=== PATIENT | male | born 2005 | race Caucasian/White ===

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

== ENCOUNTER 2025-04-24 20:15 | Emergency (ER) | payer BC, SELFPAY ==
--- NOTE | ~2025-04-24 | CT_ITS ---
CT abdomen pelvis w con Ordering provider: Teresa Grimes PA-C History: 20 years Male with . upper abd pain n/v/gerd . Comparison: None. Technique: CT abdomen and pelvis with IV and without oral contrast. Automated exposure control and it erative reconstruction technique were employed. The dose-length product was 208.90 mGy-cm. 100 mL Omn ipaque 350 was given IV. Findings: VISUALIZED LOWER CHEST: Normal. UPPER ABDOMINAL ORGANS: Liver: Normal. Gallbladder: Contracted. Spleen: Normal. Stomach/duodenum: Normal. Pancreas: Slightly prominent body and tail. Evaluation for pancreatitis advised. Adrenals: Normal. Kidneys: Hypodensity in the right kidney midpole which may indicate focal pyelonephritis. PELVIC ORGANS: The bladder shows thickened wall which may indicate cystitis. Further evaluation advis ed. BOWEL AND MESENTERY: Colon: Mild sigmoid diverticulosis without evidence of diverticulitis.. Appendix is not demonstrated. Small Bowel: Normal. No obstruction. Peritoneum/mesentery: No free air or free fluid. No mesenteric lymphadenopathy. RETROPERITONEUM: Normal aorta. No retroperitoneal lymphadenopathy. MUSCULOSKELETAL: Superficial soft tissues: The superficial soft tissues are normal. Bones: Dextroscoliosis. Otherwise, Normal spine. Artifacts seen in the pubic symphysis and the possib ility of fracture in the left 1 is less likely. IMPRESSION: 1. No evidence of appendicitis, diverticulitis or intestinal obstruction. 2. Slightly enlarged size of the body and tail of the pancreas which may indicate pancreatitis. Clin ical correlation and further evaluation advised. 3. Hypodensity in the right kidney midpole suggestive of pyelonephritis. 4. Slightly thickened wall of the urinary bladder which may indicate cystitis. Further evaluation ad vised. Reviewed, dictated and finalized at location A. IMPRESSION: 1. No evidence of appendicitis, diverticulitis or intestinal obstruction. 2. Slightly enlarged size of the body and tail of the pancreas which may indic ate pancreatitis. Clinical correlation and further evaluation advised. 3. Hypodensity in the right kidney midpole suggestive of pyelonephritis. 4. Slightly thickened wall of the urinary bladder which may indicate cystitis. Further evaluation advised.
[2025-04-24 20:17] VITALS: BP 130/82; PULSE 103; RESP 17; TEMP 37.1; O2SAT 98
--- OUTSIDE RECORDS SUMMARY | 2025-04-24 20:18 | XMS_ITS | Continuity of Care Document ---
Author Organization [facility] Address [address] [place] [address] Phone Care Team Providers Care Field Cane Scale Clerk Name Role Phone Valentin Hammonds MD Unavailable Unavailable Allergies, Adverse Reactions, Alerts Substance Reaction Status Criticality No Known Allergies Active No Inform ation Medications Medication Instructions Dosage Effective Dates (start - stop) Status Comments No Drug Therapy Prescribed Advance Directives Directive Yes / No Effective Date File Name No Information Encounters Encounter Description Practice Location Reason(s) For Visit Diagnoses Date Provider Providers [facility] on [facility] [address] [place], [place], [id number], [place] tel:[phone] [facility] Short staturePubertal delay Jul- [address], [address] [place] [address], [id number] , [place]. tel:[phone] Referring Provider: [address], [place], [address] . tel:[phone] Family History Family Member Type Diagnosis Age At Onset No Information Payers Payer name Insurance type Covered green party ID Authoriza arline(s) [facility] [id number] Social History Type Description Quantity Date Captured Comments Alcohol Use Details Unknown Caffeine Use Details Unknown Tobacco Use Status No Information Smoking Status No Information Sex Male Vital Signs Date / Time: Height Weight BMI Pulse Rate Blood Pressure Temperature Respiratory Rate Body Surface Area Head Circumference Head Circ. Percentile Wt./Reuben. Percentile BMI percentile Pulse Ox Inhaled Ox 10:18 AM 52.60 in 23.587 kg (52.00 lbs) 13.2 1 kg/m eter (2) 112/56 mm[Hg] 98.70 F Chief Complaint And Reason For Visit No Information Reason For Referral Reason For Referral No Information History Of Present Illness Encounter Date Complaint History Of Prese nt Illness No Information Functional Status Date Functional Assessmen t No Information Medications Administered Medication Instructions Dosage Effective Dates (start - stop) Status Comments No Drug Therapy Prescribed Instructions Date Instruction Additional Infor mation No Information Assessments Type Assessment Date No Information Patient Care Teams Name Effective Dates (start - stop) Status Members No Information
--- OUTSIDE RECORDS SUMMARY | 2025-04-24 20:18 | XMS_ITS | Clinical Summary ---
Author Organization [facility] Address [address] [place] [address] Care Team Providers Care Head Of Maintenance Name Role Phone Unavailable Primary Care Provider Unavailabl e Source Comments [facility],non-owned Affiliates and Associated Physician Practices is amultiple site organization consisting of ambulatory clinics and hospital sitesin [place], [place], [place] and [place]. This disclosure is being madepursuant to the Care Everywhere program and may not contain all information available regarding this patient. Last updated 18.[facility] Allergies No known active allergies Medications * Be aware that medications may not be up to date on this document. Alwaysverify current medications with the patient. cetirizine (ZYRTEC) 10 MG chew tablet Take 10 mg by mouth once daily Active Active Problems Problem Noted Date Diagnosed Date Fracture, radius and ulna, shaft 03/25/2017 Social History Tobacco Use Types Packs/Day Years Used Date Smoking Tobacco: Never Smokeless Tobacco: Never Alcohol Use Standard Drinks/Week Comments No 0 (1 standard drink = 0.6 oz pur e alcohol) Sex and Gender Information Value Date Recorded Sex Assigned at Not on file Legal Sex Male 9:06 AM CDT Gender Identity Not on file Sexual Orientation Not on file Last Filed Vital Signs Vital Sign Reading Time Taken Comments Blood Pressure 108/56 03/29/2017 10:50 AM CDT Pulse 76 03/29/2017 11:07 AM CDT Temperature 36.3 C (97.3 F) 03/29/2017 9:00 AM CDT Respiratory Rate 10 03/29/2017 11:07 AM CDT Oxygen Saturation 94% 03/29/2017 11:07 AM CDT Inhaled Oxygen Concentration - - Weight 32.5 kg (71 lb 10.4 oz) 05/20/2017 10:23 AM CDT Height 149.5 cm (4' 10.86) 05/20/2017 10:23 AM CDT Body Mass Index 14.54 05/20/2017 10:23 AM CDT Plan of Treatment Health Maintenance Due Date Last Done Comments HIV SCREENING 2018 HPV VACCINE (1 - Male 3-dose series) 2018 MENINGOCOCCAL (Group B) VACC INE SHARED DECISION-MAKING (1 of 2 - Standard) 2019 HEPATITIS C SCREENING 03/15/2021 DTAP/TDAP/TD VACCINES (1 - Tdap) 2022 HEPATITIS B VACCINE (1 of 3 - 19+ 3-dose series) 2022 COVID-19 VACCINE (1 - 2023-2 5 season) 2024 DEPRESSION SCREENING 11/22/2024 INFLUENZA VACCINE (Season Ended) 2025 ZOSTER VACCINE (1 of 2) 2053 HIB VACCINE Aged Out No longer eligi ble based on patient's age to complete this topic MENINGOCOCCAL GROUPS A/C/Y/W VACCINE Aged Out No longer eligible b ased on patient's age to complete this topic PNEUMOCOCCAL VACCINE Aged Out No long er eligible based on patient's age to complete this topic Insurance [facility]
--- OUTSIDE RECORDS SUMMARY | 2025-04-24 20:18 | XMS_ITS | Encounter Summary ---
Author Organization [facility] Address [address] [place] [address] Care Team Providers Care Spring Bender Name Role Phone Unavailable Primary Care Provider Unavailabl e Encounter Details Date Type Department Care Team (Late st Contact Info) Description [address] 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
--- OUTSIDE RECORDS SUMMARY | 2025-04-24 20:18 | XMS_ITS | Encounter Summary ---
Author Organization [facility] Address [address] Attn: [place] [address] Care Team Providers Care Tobacco Dipper Name Role Phone Unavailable Primary Care Provider Unavailabl e Encounter Details Date Type Department Care Team (Late st Contact Info) Description 2003 Inpatient Historical Robert Johnson MD [address] [place] [phone] Luna Colunga MD [address] [place] [address] [facility]-NO C/DELIVERY (Primary Dx) Social History Tobacco Use Types Packs/Day Years Used Date Smoking Tobacco: Never Assessed Sex and Gender Information Value Date Recorded Sex Assigned at Not on file 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
--- OUTSIDE RECORDS SUMMARY | 2025-04-24 20:18 | XMS_ITS | Encounter Summary ---
Author Organization [facility] Address [address] [place] [address] Care Team Providers Care Operations Intelligence Superintendent Name Role Phone Unavailable Primary Care Provider Unavailabl e Encounter Details Date Type Department Care Team (Late st Contact Info) Description 2003 Outpatient Historical [facility] TRANSFER CAR OPERATOR - [address] [place] [address] Elliot Waller MD [address] [address] Social History Tobacco Use Types Packs/Day Years Used Date Smoking Tobacco: Never Assessed Sex and Gender Information Value Date Recorded Sex Assigned at Not on file 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
--- OUTSIDE RECORDS SUMMARY | 2025-04-24 20:18 | XMS_ITS | Referral Summary ---
Author Organization [facility] Address [address] [place] [address] Care Team Providers Care Musical Therapist Name Role Phone Ghada Newton NP Primary Care Provider [phone] Encounters Date Type Department Care Team Description 04/23/2025 Nurse Triage [facility] Primary Care at [address] [address] Ghada Newton, STUFFING MACHINE OPERATOR from Last 3 Months Allergies No known active allergies Medications cetirizine (ZyrTEC) 10 mg chewable tablet Take 1 tablet (10 mg total) by mouth Active escitalopram (LEXAPRO) 10 mg tablet Take 1 tablet (10 mg total) by mouth daily 30 tablet 1 12/15/2023 Active Active Problems Problem Noted Date Diagnosed Date Anxiety 12/15/2023 Assessment & Plan (12/15/2023 12:58 PM WATER PLUMBER): + Thomas-7. Discussed starting a medication and pt is agreeable. Will start lexapro . Discussed starting dose and titration to full dose, possible SE and time frame for expected results. Call if any suicidal thoughts or questions concerning SE. Do not abruptly stop medication without calling office. Follow up in 3-4 weeks for recheck and continuation of medications. Annual physical exam 12/15/2023 Assessment & Plan (12/15/2023 12:59 PM WATER PLUMBER): -Recommended: Healthy diet. Avoiding junk food/fast food. -30 minutes of exercise most days of the week. Increase to 45 minutes for weight loss. Immunizations: Recommended influenza routine labs ordered Follow-up in 1 month. 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 Resolved Problems Problem Noted Date Diagnosed Date Resolved Date Fracture, radius and ulna, shaft 03/25/2017 12/15/2023 Immunizations Immunization Administration Dates Next Due DTaP 09/03/2008, 5,2003,2003 ,2003 HPV9 07/08/2020 Hep A, Pediatric 07/06/2017,08/07/2014 Hep B, Adolescent or Pediatric 01/17/2004,2002,2003 Hib (PRP-OMP) 03/30/2005,2003,2003 ,2003 IPV 09/03/2008,03/30/2005,2003 ,2003 Influenza, Unspecified 12/15/2023(Deferr ed: Patient Refused),11/22/2022(Deferred: Patient Refused) MMR 09/03/2008,07/07/2004 Meningococcal B, OMV (Bexsero) 08/08/2020,2019 Meningococcal Conjugate (Menveo) 07/08/2020 Meningococcal MCV4P (Menactra) 08/07/2014 Pneumococcal Conjugate 7-Valent 03/30/2005,10/10,2003,2003 Tdap 01/07/2022,08/07/2014 Varicella 09/03/2008,04/04/2004 Social History Tobacco Use Types Packs/Day Years Used Date Smoking Tobacco: Never Smokeless Tobacco: Never Tobacco Cessation:Counseling Given: Not Answered PHQ-2 Answer Date Recorded PHQ-2 Total Score (If total score is 3 or more points, staff should administer the PHQ-9) 0 12/15/2023 Personal Safety Answer Date Recorded Getting School Help Needed Not on file 11/09 Sex and Gender Information Value Date Recorded Sex Assigned at Not on file Legal Sex Male 5:22 AM WATER PLUMBER Gender Identity Not on file Sexual Orientation Not on file Last Filed Vital Signs Vital Sign Reading Time Taken Comments Blood Pressure 112/70 12/15/2023 12:16 PM WATER PLUMBER Pulse 81 12/15/2023 12:16 PM WATER PLUMBER Temperature 36.8 C (98.2 F) 12/15/2023 12:16 PM WATER PLUMBER Respiratory Rate 18 10/05/2018 9:21 AM WATER PLUMBER Oxygen Saturation 98% 12/15/2023 12:16 PM WATER PLUMBER Inhaled Oxygen Concentration - - Weight 54.5 kg (120 lb 3.2 oz) 12/15/2023 12:16 PM WATER PLUMBER Height 172.7 cm (5' 8) 12/15/2023 12:16 PM WATER PLUMBER Body Mass Index 18.28 12/15/2023 12:16 PM WATER PLUMBER Plan of Treatment Not on file Insurance [facility] [employer] [facility] Address: [address] [address] [place] [address] [employer] [facility] Address: [address] [address] [place] [address] [facility] Care Teams Musical Therapist Relationship Specialty Start Date End Date Ghada Newton NP PCP - General Family Medicine 12/15/23
--- OUTSIDE RECORDS SUMMARY | 2025-04-24 20:18 | XMS_ITS | Encounter Summary ---
Author Organization [facility] Address 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
--- OUTSIDE RECORDS SUMMARY | 2025-04-24 20:18 | XMS_ITS | Encounter Summary ---
Author Organization [facility] Address [address] [place] [address] Care Team Providers Care Manager Bar Name Role Phone Unavailable Primary Care Provider Unavailabl e Encounter Details Date Type Department Care Team (Late st Contact Info) Description 2003 Outpatient Historical [facility] Pediatrics - Medical [place] [address] [address] Denzel Church MD [address] [place] [address] Social History Tobacco Use Types Packs/Day Years Used Date Smoking Tobacco: Never Assessed Sex and Gender Information Value Date Recorded Sex Assigned at Not on file Legal 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
--- OUTSIDE RECORDS SUMMARY | 2025-04-24 20:18 | XMS_ITS | Encounter Summary ---
Author Organization [facility] Address [address] [place] [address] Care Team Providers Care Court Operations Clerk Name Role Phone Ghada Newton NP Primary Care Provider [phone] Reason for Visit * Reason Onset Date Comments GERD 04/23/2025 Encounter Details Date Type Department Care Team (Late st Contact Info) Description 04/23/[address] 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 He has taken OTC antacids, TUMS. Caller is currently with patient who gave verbal permission for me to speak with his mother, Natalie. 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 He states his acid reflux has been acting up and having nausea off/on. States he vomited two weeks ago. States he feels more nauseated today than normal. No appt available to milieu technician. Please contact patient to schedule appt or with further recommendations. ([phone]) Care Advice Given: Avoid spicy or greasy foods, do not eat late at night, sit up for 30 minutes after eating, Maalox or Mylanta, drink plenty of water, no caffeine Educated patient to call back if worsens, new symptoms develop or has further questions/concerns Regarding: mild stomach pain, nausea ----- Message from Selin B sent at 04/23/2025 12:42 PM CDT ----- Symptom Based Call Chief Complaint(s): mild stomach pain, nausea Duration: a couple weeks What type of symptom(s) is the patient experiencing? Non-Emergent. Is this a new or reoccurring symptom(s)? New What have you tried to help your symptom(s)? Otc anti-acids Why was appointment not scheduled? Appointment availability did not meet the patient's need. Additional Comments: Natalie (not listed on most recent HIPAA) called to schedule patient appointment as patient has been experiencing mild intermittent stomach pain with nausea. Natalie is concerned as this has been ongoing for a couple weeks now, EXECUTIVE OFFICER SPECIAL WARFARE TEAM attempted to schedule appointment but first available not until 05/22/25, no same day availability. Natalie is requesting sooner appointment if possible. Does message need to be routed? Yes-Action Needed documented in this encounter Plan of Treatment Not on file documented as of this encounter Visit Diagnoses Not on filedocumented in this encounter Care Teams Court Operations Clerk Relationship Specialty Start Date End Date Ghada Newton NP PCP - General Family Medicine 12/15/23 documented as of this encounter
--- OUTSIDE RECORDS SUMMARY | 2025-04-24 20:18 | XMS_ITS | Continuity of Care Document ---
Author Organization [facility] Address [address] [place] [address] Phone Care Team Providers Care Trust Operations Assistant Name Role Phone Vaughan OD, Messi Unavailable Unavailable Procedures Procedure Date Eye Exam & Treatment Refraction Office/outpatient Visit, [facility] Refraction Advance Directives Directive Yes / No Effective Date File Name No Information Encounters Encounter Description Practice Location Reason(s) For Visit Diagnoses Date Provider Providers Copied on Encounter [facility], [address] [place] [address] [address], [place], [place], [id number], tel:[phone] [facility] No Information Jan-0 2-201 0 Vaughan OD Messi. [address] , [address], [place], [place], [facility], [place]. tel:[phone] Office/outpat ient Visit, [facility], [address] [place] [address] [address], [place], [place], [id number], tel:[phone] [facility] No Information 6-200 8 Vaughan OD Messi. [address], [place], [place], [facility], [place]. tel:[phone] Family History Family Member Type Diagnosis Age At Onset No Information Payers Payer name Insurance type Covered green party ID Authoriza tion(s) No Information Social History Type Description Quantity Date Captured Comments Sex Male Smoking Status No Information Chief Complaint And Reason For Visit No Information Reason For Referral Reason For Referral No Information History Of Present Illness Encounter Date Complaint History Of Prese nt Illness No Information Functional Status Date Functional Assessmen t No Information Instructions Date Instruction Additional Infor mation No Information Assessments Type Assessment Date No Information Patient Care Teams Name Effective Dates (start - stop) Status Members No Information
--- OUTSIDE RECORDS SUMMARY | 2025-04-24 20:18 | XMS_ITS | Clinical Summary ---
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
--- OUTSIDE RECORDS SUMMARY | 2025-04-24 20:18 | XMS_ITS | Clinical Summary ---
Author Organization [facility] Address [address] [place] [address] Care Team Providers Care Manager Discovery Name Role Phone Ghada Newton NP Primary Care Provider Allergies No known active allergies Medications cetirizine (ZyrTEC) 10 mg chewable tablet Take 1 tablet (10 mg total) by mouth Active escitalopram (LEXAPRO) 10 mg tablet Take 1 tablet (10 mg total) by mouth daily 30 tablet 1 12/15/2023 Active Active Problems Problem Noted Date Diagnosed Date Anxiety 12/15/2023 Assessment & Plan (12/15/2023 12:[address] BAILIFF OR SHERIFF): + Thomas-7. Discussed starting a medication and [...] 12/15/2023 Assessment & Plan (12/15/2023 12:[address] BAILIFF OR SHERIFF): -Recommended: Healthy diet. Avoiding junk food/fast food. -30 minutes of exercise most days of the week. Increase to 45 minutes for weight loss. Immunizations: Recommended influenza routine labs ordered Follow-up in 1 month. 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 Resolved Problems Problem Noted Date Diagnosed Date Resolved Date Fracture, radius and ulna, shaft 03/25/2017 12/15/2023 Encounters Date Type Department Care Team Description 04/23/2025 Nurse Triage [facility] Primary Care at [address] [address] Ghada Newton, MARCEL from Last 3 Months Immunizations Immunization Administration Dates Next Due DTaP 09/03/2008, 5,2003,2003 ,2003 HPV9 07/08/2020 Hep A, Pediatric 07/06/2017,08/07/2014 Hep B, Adolescent or Pediatric 01/17/2004,2002,2003 Hib (PRP-OMP) 03/30/2005,2003,2003 ,2003 IPV 09/03/2008,03/30/2005,2003 ,2003 Influenza, Unspecified 12/15/2023(Deferr ed: Patient Refused),11/22/2022(Deferred: Patient Refused) MMR 09/03/2008,07/07/2004 Meningococcal B, OMV (Bexsero) 08/08/2020,2019 Meningococcal Conjugate (Menveo) 07/08/2020 Meningococcal MCV4P (Menactra) 08/07/2014 Pneumococcal Conjugate 7-Valent 03/30/2005,10/10,2003,2003 Tdap 01/07/2022,08/07/2014 Varicella 09/03/2008,04/04/2004 Surgical History Surgery Date Site/Laterality Comments TYMPANOSTOMY TUBE PLACEMENT Medical History Medical History Date Comments Anxiety Fracture, radius and ulna, shaft 03/25/2017 Family History Medical History Relation Name Comments Anxiety disorder Father OCD Father Depression Mother Relation Name Status Comments Father Alive Mother Alive Social History Tobacco Use Types Packs/Day Years [...] on file Legal Sex Male 5:[address] BAILIFF OR SHERIFF Gender Identity Not on file Sexual Orientation Not on file Obstetrics History Last Filed Vital Signs Vital Sign Reading Time Taken Comments Blood Pressure 112/70 12/15/2023 12:[address] BAILIFF OR SHERIFF Pulse 81 12/15/2023 12:[address] BAILIFF OR SHERIFF Temperature 36.8 C (98.2 F) 12/15/2023 12:[address] BAILIFF OR SHERIFF Respiratory Rate 18 10/05/2018 9:[address] BAILIFF [place] SHERIFF Oxygen Saturation 98% 12/15/2023 12:[address] BAILIFF OR SHERIFF Inhaled Oxygen Concentration - - Weight 54.5 kg (120 lb 3.2 oz) 12/15/2023 12:[address] BAILIFF OR SHERIFF Height 172.7 cm (5' 8) 12/15/2023 12:[address] BAILIFF OR SHERIFF Body Mass Index 18.28 12/15/2023 12:[address] [place]AILIFF [place] SHERIFF Plan of Treatment Health Maintenance Due Date Last Done Comments Hepatitis C Screening 2003 HPV Vaccines (2 - Male 3-dos e series) 08/05/2020 07/08/2020 Covid-19 Vaccine (4 - 2023-2 5 season) 2024 12/01/2021, 03/14/2021, 02/20/2021 Depression Screening 12/15/2024 12/15/2023 Regular Well Visit/Exam 18-64 12/15/2024 12/15/2023 Influenza Vaccine (Season Ended) 2025 DTaP/Tdap/Td Vaccine (8 - Td or Tdap) 01/07/2032 01/07/2022, 08/07/2014, 09/03/2008, Additional history exists Hepatitis B Screening Completed 01/17/2004 , 2003, 2003 Pneumococcal vaccine <65 Completed 005, 2003, 2003, Additional history exists Varicella Vaccines Completed 09/03/2008, 04/04/2004 Meningococcal B Vaccine Completed 08/08/2020, 07/08 Insurance [facility] [employer] [facility] Care Teams Manager Discovery Relationship Specialty Start Date End Date Ghada Newton NP PCP - General Family Medicine 12/15/23
[2025-04-24 21:04] LABS: Basophils Percent Auto 0.5 % (0.2-1.2); Eosinophils Absolute Auto 0.1 K/mm3 (0-0.3); Eosinophils Percent Auto 1.2 % (0-4.4); Hematocrit 47.3 % (42.0-52.0); Hemoglobin 15.2 g/dL (14.0-18.0); Immature Granulocyte Absolute 0.02 K/mm3 (0.00-0.031); Immature Granulocyte Percent A 0.4 % (0-0.5); Lymphocytes Absolute Auto 1.74 K/mm3 (0.9-3.2); Lymphocytes Percent Auto 30.6 % (18.3-44.2); Mean Corpuscular HGB Conc 32.1 g/dl (32-36); Mean Corpuscular Hemoglobin 27.4 pg (26-34); Mean Corpuscular Volume 85.2 fl (80-100); Mean Platelet Volume 9.2 fl (7.4-10.4); Monocytes Absolute Auto 0.4 K/mm3 (0.1-0.6); Monocytes Percent Auto 7.7 % (2.6-8.5); Neutrophils Absolute Auto 3.4 K/mm3 (1.3-6.7); Neutrophils Percent Auto 59.6 % (45.5-73.1); Platelet Count Result 326 k/mm3 (150-375); Red Blood Count 5.55 M/mm3 (4.6-6.20); Red Cell Distribution Width 12.5 % (11.5-14.5); White Blood Count 5.7 K/mm3 (4.5-10.0)
[2025-04-24 21:21] LABS: Alanine Aminotransferase 23 U/L (6-50); Alkaline Phosphatase 75 U/L (38-126); Anion Gap 10 mmol/L (4-12); Aspartate Amino Transferase 30 U/L (17-59); Bilirubin,Total 0.6 mg/dL (0.2-1.3); Blood Urea Nitrogen 13 mg/dL (9-20); Calcium 9.8 mg/dL (8.4-10.2); Carbon Dioxide 28 mmol/L (22-30); Chloride 103 mmol/L (98-107); Estimated CRCL calculation 90 ml/min; Estimated Glomerular Filt Rate > 60; Glucose 124 mg/dL (65-110); Lipase 71 U/L (23-300); Sodium 141 mmol/L (137-145); Total Protein 8.5 g/dL (6.3-8.2)
[2025-04-24 21:23] LABS: Add Urine Microscopic? YES; Appearance Urine Clear (Clear); Bacteria Urine None Seen /hpf; Bilirubin Urine Negative (Negative); Blood Urine Non-Hemolyzed Trace (Negative); Color Urine Yellow (Yellow); Glucose Urine UA Negative (Negative); Ketones Urine Trace mg/dL (Negative); Leukocyte Esterase Ur Trace LEU/UL (Negative); Nitrate Urine Negative (Negative); Non Pathogenic Casts 0-2; Protein Urine Negative (Negative); Specific Grav Ur 1.018 (1.001-1.035); Squamous Epithelial Cell Urine None Seen /hpf (Few); Urobilinogen Urine 0.2 mg/dL (<2.0); WBC Urine 0-5 /hpf (0-3); pH Urine 6.5 (5.0-9.0)
[2025-04-24 21:53] VITALS: BP 128/68; PULSE 83; RESP 13; O2SAT 100
--- OUTSIDE RECORDS SUMMARY | 2025-04-24 21:55 | XMS_ITS | Continuity of Care Document ---
Author Organization [facility] Address [address] [address] [place] [address] Phone Care Team Providers Care Mammography Tech Name Role Phone Valentin Hammonds MD Unavailable [...] Diagnoses Date Provider Providers Copied on [facility] [address], [place], [place], [id number], [place] tel:[phone] [facility] Short staturePubertal delay Jul- [address], [address] [place] [address], [id number] , [place]. tel:[phone] Referring Provider: [address], [place], [address] . tel:[phone] Family History Family Member Type Diagnosis Age At Onset No Information Payers Payer name Insurance type Covered libertarian ID Authoriza arline(s) [facility] CI [id number] Social History Type Description Quantity Date Captured [...]
--- OUTSIDE RECORDS SUMMARY | 2025-04-24 21:55 | XMS_ITS | Encounter Summary ---
Author Organization [facility] Address [address] [place] [address] Care Team Providers Care Electromedical Equipment Technician Name Role Phone Unavailable Primary Care Provider Unavailabl e Encounter Details Date Type Department Care Team (Late st Contact Info) Description 2003 Outpatient Historical [facility] Pediatrics - Medical [address] [facility] [address] [address] Robert Johnson MD [address] [place] [address] Social History Tobacco Use Types Packs/Day Years Used Date Smoking Tobacco: Never Assessed Sex and Gender Information Value Date Recorded Sex Assigned at Not on file Legal 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
--- OUTSIDE RECORDS SUMMARY | 2025-04-24 21:55 | XMS_ITS | Clinical Summary ---
Author Organization [facility] Address [address] [place] [address] Care Team Providers Care Travelift Operator Name Role Phone Unavailable Primary Care Provider Unavailabl e Source Comments [facility] [facility],non-owned Affiliates and Associated Physician Practices is amultiple site organization consisting of ambulatory clinics and hospital sitesin [place], [place], [place] and [place]. This disclosure is being madepursuant to the Care Everywhere program and may not contain all information available regarding this patient. Last updated 18.[facility] [employer] Allergies No known active allergies Medications * [...] patient's age to complete this topic Insurance [facility]
--- OUTSIDE RECORDS SUMMARY | 2025-04-24 21:55 | XMS_ITS | Continuity of Care Document ---
Author Organization [facility] Address [address] [place] [address] Phone Care Team Providers Care Mining Machinery Assembler Name Role Phone Vaughan OD, Messi Unavailable Unavailable Procedures Procedure Date Eye Exam & Treatment Refraction Office/outpatient Visit, [facility] Refraction Advance Directives Directive Yes / No Effective Date File Name No Information Encounters Encounter Description Practice Location Reason(s) For Visit Diagnoses Date Provider Providers Copied on Encounter [facility], [address] [place] [address] [address], [place], [place], [id number], tel:[phone] [facility] No Information Jan-0 2-201 0 Vaughan OD Messi. [address] , [address], [place], [place], [facility], [place]. tel:[phone] Office/outpat ient Visit, [facility], [address] [place] [address] [address], [place], [place], [id number], tel:[phone] [facility] No Information 6-200 8 Vaughan OD Messi. [address] , [address], [place], [place], [facility], [place]. tel:[phone] Family History Family Member Type Diagnosis Age At Onset No Information Payers Payer name Insurance type Covered libertarian ID Authoriza tion(s) No Information Social History [...]
--- OUTSIDE RECORDS SUMMARY | 2025-04-24 21:55 | XMS_ITS | Encounter Summary ---
Author Organization [facility] Address [address] [place] [address] Care Team Providers Care Volleyball Referee Name Role Phone Unavailable Primary Care Provider Unavailabl e Encounter Details Date Type Department Care Team (Late st Contact Info) Description 2003 Outpatient Historical [facility] COMPLIANCE AND CONTROL ANALYST - [address] [place] [address] Elliot Waller MD [address] [facility] [address] [address] Social History Tobacco Use Types Packs/Day Years Used Date Smoking Tobacco: Never Assessed Sex and Gender Information Value Date Recorded Sex Assigned at Not on file Legal Sex Male 3:03 AM DECK OFFICER Gender Identity Not on file Sexual Orientation Not on file documented as of this encounter Plan of Treatment Not on file documented as of this encounter Visit Diagnoses Not on filedocumented in this encounter
--- OUTSIDE RECORDS SUMMARY | 2025-04-24 21:55 | XMS_ITS | Clinical Summary ---
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
--- OUTSIDE RECORDS SUMMARY | 2025-04-24 21:55 | XMS_ITS | Clinical Summary ---
Author Organization [facility] Address [address] [place] [address] Care Team Providers Care Network Design Architect Name Role Phone Ghada Newton NP Primary Care Provider [phone] Allergies No known active allergies Medications cetirizine (ZyrTEC) 10 mg chewable tablet Take 1 tablet (10 mg total) by mouth Active escitalopram (LEXAPRO) 10 mg tablet Take 1 tablet (10 mg total) by mouth daily 30 tablet 1 12/15/2023 Active Active Problems Problem Noted Date Diagnosed Date Anxiety 12/15/2023 Assessment & Plan (12/15/2023 12:58 PM HOSPITALITY DIRECTOR): + Thomas-7. Discussed starting a medication and [...] 12/15/2023 Assessment & Plan (12/15/2023 12:59 PM HOSPITALITY DIRECTOR): -Recommended: Healthy diet. Avoiding junk food/fast food. -30 minutes of exercise most days of the week. Increase to 45 minutes for weight loss. Immunizations: Recommended influenza routine labs ordered Follow-up in 1 month. 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 Resolved Problems Problem Noted Date Diagnosed Date Resolved Date Fracture, radius and ulna, shaft 03/25/2017 12/15/2023 Encounters Date Type Department Care Team Description 04/23/2025 Nurse Triage [facility] Primary Care at [address] [address] Ghada Newton, MARCEL from Last [...] on file Legal Sex Male 5:22 AM HOSPITALITY DIRECTOR Gender Identity Not on file Sexual Orientation Not on file Obstetrics History Last Filed Vital Signs Vital Sign Reading Time Taken Comments Blood Pressure 112/70 12/15/2023 12:16 PM HOSPITALITY DIRECTOR Pulse 81 12/15/2023 12:16 PM HOSPITALITY DIRECTOR Temperature 36.8 C (98.2 F) 12/15/2023 12:16 PM HOSPITALITY DIRECTOR Respiratory Rate 18 10/05/2018 9:21 AM HOSPITALITY DIRECTOR Oxygen Saturation 98% 12/15/2023 12:16 PM HOSPITALITY DIRECTOR Inhaled Oxygen Concentration - - Weight 54.5 kg (120 lb 3.2 oz) 12/15/2023 12:16 PM HOSPITALITY DIRECTOR Height 172.7 cm (5' 8) 12/15/2023 12:16 PM HOSPITALITY DIRECTOR Body Mass Index 18.28 12/15/2023 12:16 PM HOSPITALITY DIRECTOR Plan of Treatment Health Maintenance Due Date [...] Meningococcal B Vaccine Completed 08/08/2020, 07/08 Insurance [facility] [employer] [facility] H[facility]/PPO Address: [address] [address] [place] [address] [facility] Address: [address] [address] [place] [address] [facility] Care Teams Network Design Architect Relationship Specialty Start Date End Date Ghada Newton NP PCP - General Family Medicine 12/15/23
--- OUTSIDE RECORDS SUMMARY | 2025-04-24 21:55 | XMS_ITS | Encounter Summary ---
Author Organization [facility] Address [address] [facility] Attn: [place] [address] Care Team Providers Care Remanufacturing Technician Name Role Phone Unavailable Primary Care Provider Unavailabl e Encounter Details Date Type Department Care Team (Late st Contact Info) Description 2003 Inpatient Historical Robert Johnson MD [address] [place] [phone] Luna Colunga MD [address] [place] [id number] [facility]-NO C/DELIVERY (Primary Dx) Social History Tobacco Use Types Packs/Day Years Used Date Smoking Tobacco: Never Assessed Sex and Gender Information Value Date Recorded Sex Assigned at Not on file Legal Sex Male 3:03 AM FLAVOR ROOM 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
--- OUTSIDE RECORDS SUMMARY | 2025-04-24 21:55 | XMS_ITS | Encounter Summary ---
Author Organization [facility] Address [address] [place] [address] Care Team Providers Care Chronometer Adjuster Name Role Phone Ghada Newton NP Primary Care Provider [phone] Reason for Visit * Reason Onset Date Comments GERD 04/23/2025 Encounter Details Date Type Department Care Team (Late st Contact Info) Description 04/23/2025 Nurse Triage [facility] Medical Group Primary Care at [address] [address] Ghada Newton NP [address] [place] [address] [address] [place] [address] Social History Tobacco Use Types [...] on file Legal Sex Male 5:22 AM SIGNAL CONSTRUCTOR Gender Identity Not on file Sexual Orientation [...] speak with his mother, Natalie. 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 He states his acid reflux has been acting up and having nausea off/on. States he vomited two weeks ago. States he feels more nauseated today than normal. No appt available to department administrator. Please contact patient to schedule appt or with further recommendations. ([phone]) Care Advice Given: Avoid spicy or greasy [...] been ongoing for a couple weeks now, WHITE SIDEWALL TIRE BUFFER attempted to schedule appointment but first available not until 05/22/25, no same day availability. Natalie is requesting sooner appointment if possible. Does message need to be routed? Yes-Action Needed documented in this encounter Plan of Treatment Not on file documented as of this encounter Visit Diagnoses Not on filedocumented in this encounter Care Teams Chronometer Adjuster Relationship Specialty Start Date End Date Ghada Newton NP PCP - General Family Medicine 12/15/23 documented as of this encounter
--- OUTSIDE RECORDS SUMMARY | 2025-04-24 21:55 | XMS_ITS | Encounter Summary ---
Author Organization [facility] Address [address] [place] [address] Care Team Providers Care Attorney Recruiter Name Role Phone Unavailable Primary Care Provider Unavailabl e Encounter Details Date Type Department Care Team (Late st Contact Info) Description 2003 Outpatient Historical [facility] Pediatrics - Medical [address] [facility] [address] [address] Denzel Church MD [address] [facility] [place] [address] Social History Tobacco Use Types Packs/Day Years Used Date Smoking Tobacco: Never Assessed Sex and Gender Information Value Date Recorded Sex Assigned at Not on file Legal Sex Male 3:03 AM FOOD PREPARATION SUPERVISOR Gender Identity Not on file Sexual Orientation Not on file documented as of this encounter Plan of Treatment Not on file documented as of this encounter Visit Diagnoses Not on filedocumented in this encounter
--- OUTSIDE RECORDS SUMMARY | 2025-04-24 21:55 | XMS_ITS | Referral Summary ---
Author Organization [facility] Address [address] [place] [address] Care Team Providers Care Manifest/Order Organizer Print Orders Name Role Phone Ghada Newton NP Primary Care Provider [phone] Encounters Date Type Department Care Team Description 04/23/2025 Nurse Triage [facility] Group Primary Care at [address] [address] Ghada Newton, FINANCIAL SERVICES ASSOCIATE from Last 3 Months Allergies No known active allergies Medications cetirizine (ZyrTEC) 10 mg chewable tablet Take 1 tablet (10 mg total) by mouth Active escitalopram (LEXAPRO) 10 mg tablet Take 1 tablet (10 mg total) by mouth daily 30 tablet 1 12/15/2023 Active Active Problems Problem Noted Date Diagnosed Date Anxiety 12/15/2023 Assessment & Plan (12/15/2023 12:58 PM CHIEF OF PARTY): + Thomas-7. Discussed starting a medication and [...] 12/15/2023 Assessment & Plan (12/15/2023 12:59 PM CHIEF OF PARTY): -Recommended: Healthy diet. Avoiding junk food/fast food. [...] on file Legal Sex Male 5:22 AM CHIEF OF PARTY Gender Identity Not on file Sexual Orientation Not on file Last Filed Vital Signs Vital Sign Reading Time Taken Comments Blood Pressure 112/70 12/15/2023 12:16 PM CHIEF OF PARTY Pulse 81 12/15/2023 12:16 PM CHIEF OF PARTY Temperature 36.8 C (98.2 F) 12/15/2023 12:16 PM CHIEF OF PARTY Respiratory Rate 18 10/05/2018 9:21 AM CHIEF OF PARTY Oxygen Saturation 98% 12/15/2023 12:16 PM CHIEF OF PARTY Inhaled Oxygen Concentration - - Weight 54.5 kg (120 lb 3.2 oz) 12/15/2023 12:16 PM CHIEF OF PARTY Height 172.7 cm (5' 8) 12/15/2023 12:16 PM CHIEF OF PARTY Body Mass Index 18.28 12/15/2023 12:16 PM CHIEF OF PARTY Plan of Treatment Not on file Insurance [facility] [employer] [facility] [facility] Care Teams Manifest/Order Organizer Print Orders Relationship Specialty Start Date End Date Ghada Newton NP PCP - General Family Medicine 12/15/23
--- OUTSIDE RECORDS SUMMARY | 2025-04-24 21:55 | XMS_ITS | Encounter Summary ---
Author Organization [facility] Address [address] [place] [address] Care Team Providers Care Cytometry Technologist Name Role Phone Unavailable Primary Care Provider Unavailabl e Encounter Details Date Type Department Care Team (Late st Contact Info) Description 2003 Outpatient Historical [facility] [address] [place] [address] Gayla Gipson AU.D [address] [place] [address] Social History Tobacco Use Types Packs/Day Years Used Date Smoking Tobacco: Never Assessed Sex and Gender Information Value Date Recorded Sex Assigned at Not on file Legal Sex Male 3:03 AM MANAGER INPATIENT Gender Identity Not on file Sexual Orientation Not on file documented as of this encounter Plan of Treatment Not on file documented as of this encounter Visit Diagnoses Not on filedocumented in this encounter
[2025-04-24] MEDS: ONDANSETRON INJ 4 MG/2 ML VIAL IV PUSH (23:01)
[2025-04-24] MEDS: BELLADONNA ALK/PHENOB ELIX 10 ML, MAG HYDROX/ALUMINUM HYD/SIMETH 30 ML, LIDOCAINE 2% VI... PO (23:01)
[2025-04-24] MEDS: PANTOPRAZOLE SODIUM IV 40 MG VIAL IV PUSH (23:01)
[2025-04-24 23:04] VITALS: BP 118/70; PULSE 87; RESP 20; O2SAT 98
--- NOTE | 2025-04-24 23:10 | ED_ITS ---
HPI - Nausea/Vomiting/Diarrhea General Chief complaint: Nausea/Vomiting/Diarrhea Stated complaint: nausea x days, vomit after eating only x 2-3 weeks Time Seen by Provider: 04/24/25 21:31 Source: patient Mode of arrival: ambulatory Limitations: no limitations History of Present Illness HPI Narrative: Patient is a 20 y/o male who presents the ED with report of nausea and acid reflux. Patient reports over the past couple weeks, he has been having intermittent nausea, worse after eating. States he has had a few episodes of emesis, last occurring last week. Reports some abdominal discomfort and acid reflux symptoms/burning in his throat. He has been taking Tums for this occasionally without much improvement. Denies diarrhea, constipation, fevers, shortness breath, chest pain Related Data Allergies Allergy/AdvReac Type Severity Reaction Status Date / Time ketamine AdvReac Intermediate Agitated Verified 04/24/25 23:06 Review of Systems 2 Review of Systems: All systems reviewed & are unremarkable except as noted in HPI. All systems reviewed & are unremarkable except as noted in HPI and below Exam 2 Narrative: GENERAL: Well appearing, thin, non-toxic, in no acute distress. HEAD: Normocephalic, atraumatic. RESPIRATORY: Airway patent, respirations nonlabored. Clear to auscultation bilaterally, no rales, rhonchi, wheezing. CARDIOVASCULAR: Regular rate and rhythm without murmurs, rubs, or gallops. ABDOMINAL: Soft, mild diffuse tenderness throughout abdomen, no rebound, nondistended. Normoactive BS. MUSCULOSKELETAL: Moves all extremities. No gross deformities. SKIN: Warm, dry, normal color. NEURO: A&O X3. Speech clear. PSYCHIATRIC: Appropriate mood and affect. Normal interaction. Course Vital Signs Vital signs: Vital Signs Temperature 98.8 F 04/24/25 20:17 Pulse Rate 103 H 04/24/25 20:17 Respiratory Rate 17 04/24/25 20:17 Blood Pressure 130/82 04/24/25 20:17 Pulse Oximetry 98 04/24/25 20:17 Oxygen Delivery Room Air 04/24/25 20:17 Temperature 98.8 F 04/24/25 20:17 Pulse Rate 66 04/24/25 23:50 Respiratory Rate 17 04/24/25 23:50 Blood Pressure 105/59 L 04/24/25 23:50 Pulse Oximetry 97 04/24/25 23:50 Oxygen Delivery Room Air 04/24/25 20:17 MDM - Nausea/Vomiting/Diarrhea MDM Narrative Medical decision making narrative: Patient presented to ED with several week history of nausea after eating, intermittent vomiting. Vital signs stable upon arrival. Patient in no acute distress. Laboratory studies are reassuring. No leukocytosis or anemia. Stable electrolytes. Stable kidney function. UA with trace ketones, no signs of infection. CT scan of abdomen/pelvis was obtained and reassuring. No evidence of surgical abnormality. Does show prominence of pancreatic tail, but very low suspicion for pancreatitis. Lipase is within normal range. Also shows possible evidence of pyelonephritis/cystitis. Urine here is completely unremarkable. Patient denies any lower abdominal pain, flank pain, urinary complaints. Very low suspicion for this. Symptoms seem most consistent with gastritis/esophagitis. Patient will be started on PPI. Will also discharge with Zofran for nausea. Will refer to GI for further evaluation if needed. Given return precautions. Patient in agreement with plan. He is feeling improved after supportive therapy in the ED. Discharged in stable condition. Medical Records Attestation: I reviewed the patient's medical records. Lab Data Attestation: I reviewed the patient's lab results. 04/24/25 20:29 04/24/25 20:29 Labs: Lab Results 04/24/25 Range/Units 20:29 WBC 5.7 (4.5-10.0) K/mm3 RBC 5.55 (4.6-6.20) M/mm3 Hgb 15.2 (14.0-18.0) g/dL Hct 47.3 (42.0-52.0) % MCV 85.2 (80-100) fl MCH 27.4 (26-34) pg MCHC 32.1 (32-36) g/dl RDW 12.5 (11.5-14.5) % Plt Count 326 (150-375) k/mm3 MPV 9.2 (7.4-10.4) fl Immature Gran % (Auto) 0.4 (0-0.5) % Neut % (Auto) 59.6 (45.5-73.1) % Lymph % (Auto) 30.6 (18.3-44.2) % [place] % (Auto) 7.7 (2.6-8.5) % Eos % (Auto) 1.2 (0-4.4) % Baso % (Auto) 0.5 (0.2-1.2) % Lymph # (Auto) 1.74 (0.9-3.2) K/mm3 [place] # (Auto) 0.4 (0.1-0.6) K/mm3 Eos # (Auto) 0.1 (0-0.3) K/mm3 Baso # (Auto) 0.0 (0.0-0.1) K/mm3 Abs Immat Gran (auto) 0.02 (0.00-0.031) K/mm3 Absolute Neuts (auto) 3.4 (1.3-6.7) K/mm3 Absolute Nucleated RBC 0.000 (0.0-0.012) K/mm3 Nucleated RBC % 0.0 (0.0-0.2) % Sodium 141 (137-145) mmol/L Potassium 4.0 (3.4-5.0) mmol/L Chloride 103 (98-107) mmol/L Carbon Dioxide 28 (22-30) mmol/L Anion Gap 10 (4-12) mmol/L BUN 13 (9-20) mg/dL Creatinine 0.94 (0.7-1.3) mg/dL Estim Creat Clear Calc 90 ml/min Estimated GFR > 60 (59 - ) Glucose 124 H (65-110) mg/dL Calcium 9.8 (8.4-10.2) mg/dL Total Bilirubin 0.6 (0.2-1.3) mg/dL AST 30 (17-59) U/L ALT 23 (6-50) U/L Alkaline Phosphatase 75 (38-126) U/L Total Protein 8.5 H (6.3-8.2) g/dL Albumin 5.0 (3.5-5.1) g/dL Lipase 71 (23-300) U/L Urine Color Yellow (Yellow) Urine Appearance Clear (Clear) Urine pH 6.5 (5.0-9.0) Ur Specific [place] 1.018 (1.001-1.035) Urine Protein Negative (Negative) mg/dL Urine Glucose (UA) Negative (Negative) mg/dL Urine Ketones Trace H (Negative) mg/dL Ur Blood (Man) Non-hemolyzed trace (Negative) Urine Nitrate Negative (Negative) Urine Bilirubin Negative (Negative) Urine Urobilinogen 0.2 (<2.0) mg/dL Leukocyte Esterase Rfl Trace H (Negative) RIAN/UL Urine RBC 6-10 H (0-2) /hpf Urine WBC 0-5 (0-3) /hpf Ur Squamous Epith Cells None seen (Few) /hpf Urine Bacteria None seen /hpf Urine Casts 0-2 Imaging Data Attestation: I personally reviewed and interpreted this imaging study as follows: Radiologist's impression: ITS Impressions Abdomen/Pelvis CT 04/25/25 00:16 IMPRESSION: 1. No evidence of appendicitis, diverticulitis or intestinal obstruction. 2. Slightly enlarged size of the body and tail of the pancreas which may indicate pancreatitis. Clinical correlation and further evaluation advised. 3. Hypodensity in the right kidney midpole suggestive of pyelonephritis. 4. Slightly thickened wall of the urinary bladder which may indicate cystitis. Further evaluation advised. Discharge Plan Discharge Clinical Impression: Nausea Gastritis Qualifiers: Gastritis type: unspecified gastritis Chronicity: acute Gastritis bleeding: w ithout bleeding Qualified Code(s): K29.00 - Acute gastritis without bleeding Patient Disposition: Home Condition: Stable Instructions: Antibiotic Form, Diet for Stomach Ulcers and Gastritis (ED), GERD (Gastroesophageal Reflux Disease) (ED) Additional Instructions: Take omeprazole daily as prescribed. Recommend avoiding eating late at night, laying flat directly after eating, fluids are very greasy, spicy, fatty, acidic. Utilize Zofran as needed for nausea. Follow-up with your primary care doctor and/or GI for further evaluation. Return to ED for worsening or severe pain, unable to keep down food or drink, chest pain, difficulty breathing, persistent fevers, dark black stools, rectal bleeding, or any other symptoms of concern. Patient Language: Pakistani Prescriptions: New omeprazole 20 mg capsule,delayed release(DR/EC) 20 mg PO DAILY Qty: 30 0RF ondansetron 4 mg tablet,disintegrating 4 mg PO Q8H PRN (Reason: nausea and vomiting) Qty: 15 0RF Follow-up/Referrals: Kendrick Willis MD [Physician] - (GI) UNKNOWN,DOCTOR [Primary Care Provider] - Time of Disposition: 01:08
[2025-04-24 23:50] VITALS: BP 105/59; PULSE 66; RESP 17; O2SAT 97
== END 2025-04-25 01:20 | disposition home or self-care (01) ==
PROVIDERS: Student in an Organized Health Care Education/Training Program; Emergency Provider Physician Assistant
DX: K29.00 Acute gastritis without bleeding (principal)
CPT/HCPCS: 36415; 74177; 80053; 81001; 83690; 85025; 96374; 96375; 99284; A9270; J2405; J2470; Q9967

== ENCOUNTER 2025-11-16 06:09 | Emergency (ER) | payer BC, SELFPAY ==
--- NOTE | ~2025-11-16 | CT_ITS ---
CT ABDOMEN AND PELVIS WITHOUT CONTRAST Clinical History: flank pain Comparison: CT with contrast 04/24/2025 Technique: Unenhanced axial images lung bases to symphysis pubis Coronal, sagittal reformats CT images acquired with automatic exposure control for dose reduction DLP: 224 mGy-cm Findings: Without intravenous contrast, sensitivity for detecting visceral parenchymal abnormalities decreased. Lung bases: Clear. Visualized heart and pericardium: Unremarkable. Liver: Unremarkable. Gallbladder: Unremarkable. Spleen: Unremarkable. Pancreas: Unremarkable. Adrenal glands: Unremarkable. Kidneys: Right kidney- No hydronephrosis. No renal stones. Left kidney- hydronephrosis. A few tiny stones. 3 mm stone distal ureter Distal esophagus/stomach: Unremarkable. Small bowel loops: Normal caliber and wall thickness. Colon: Normal caliber and wall thickness. Appendix not seen. Nodes: No enlarged nodes. Peritoneum: No ascites. No free intraperitoneal air. Urinary bladder: Unremarkable. Prostate: Unremarkable. Bones: No acute bony abnormality. Soft tissues: Unremarkable. Unopacified abdominal aorta: No aneurysmal dilatation. IMPRESSION: 1. Hydronephrosis left kidney due to 3 mm stone distal ureter. Reviewed, dictated and finalized at location R. IO TECH
[2025-11-16 06:12] VITALS: BP 135/70; PULSE 84; RESP 24; TEMP 36.9; O2SAT 100
[2025-11-16 06:55] LABS: Hematocrit 42.4 % (42.0-52.0); Hemoglobin 13.9 g/dL (14.0-18.0); Immature Granulocyte Percent A 0.5 % (0-0.5); Lymphocytes Absolute Auto 2.75 K/mm3 (0.9-3.2); Mean Corpuscular HGB Conc 32.8 g/dl (32-36); Mean Corpuscular Hemoglobin 27.5 pg (26-34); Mean Corpuscular Volume 84.0 fl (80-100); Nucleated Red Blood Cells Absolute Auto 0.000 K/mm3 (0.0-0.012); Nucleated Red Blood Cells Perc 0.0 % (0.0-0.2); Platelet Count Result 288 k/mm3 (150-375); Red Blood Count 5.05 M/mm3 (4.6-6.20); White Blood Count 8.2 K/mm3 (4.5-10.0)
[2025-11-16 07:02] LABS: Add Urine Microscopic? YES; Appearance Urine Clear (Clear); Glucose Urine UA Negative (Negative); Leukocyte Esterase Ur Negative LEU/UL (Negative); Nitrate Urine Negative (Negative); Non Pathogenic Casts 0-2; Specific Grav Ur 1.018 (1.001-1.035)
[2025-11-16 07:13] LABS: Alanine Aminotransferase 64 U/L (6-50); Albumin Level 4.5 g/dL (3.5-5.1); Alkaline Phosphatase 75 U/L (38-126); Anion Gap 10 mmol/L (4-12); Aspartate Amino Transferase 46 U/L (17-59); Bilirubin,Total 0.5 mg/dL (0.2-1.3); Blood Urea Nitrogen 16 mg/dL (9-20); Calcium 9.5 mg/dL (8.4-10.2); Carbon Dioxide 26 mmol/L (22-30); Chloride 104 mmol/L (98-107); Estimated Glomerular Filt Rate > 60; Glucose 117 mg/dL (65-110); Potassium 3.4 mmol/L (3.4-5.0); Sodium 140 mmol/L (137-145); Total Protein 8.0 g/dL (6.3-8.2)
[2025-11-16] MEDS: ONDANSETRON INJ 4 MG/2 ML VIAL IV PUSH (07:24)
[2025-11-16] MEDS: MORPHINE SULFATE (*CRX) 4 MG/ML INJ IV PUSH (07:24)
[2025-11-16 07:36] VITALS: BP 117/80; PULSE 80; RESP 18; O2SAT 99
[2025-11-16] MEDS: SODIUM CHLORIDE 0.9% IV 1,000 ML 999 ML IV CONT ×2 (07:36→08:21)
--- NOTE | 2025-11-16 07:52 | ED_ITS ---
HPI - General Adult General Chief complaint: Back Pain/Injury Stated complaint: kidney stones; back pain Time Seen by Provider: 11/16/25 07:03 History of Present Illness HPI narrative: Patient is a 20-year-old male who presents ER with left-sided back pain. Began yesterday and has started radiating around into his abdomen and into his testicle on left side. He is shaking cannot find a position of comfort. No urinary frequency urgency or dysuria. No overt hematuria. No history kidney stones. No known injury. Related Data Allergies Allergy/AdvReac Type Severity Reaction Status Date / Time ketamine AdvReac Intermediate Agitated Verified 11/16/25 07:29 Review of Systems 2 Review of Systems: All systems reviewed & are unremarkable except as noted in HPI and below Constitutional: Constitutional: Reports no additional constitutional complaints ENT: Reports system reviewed and no additional complaints, except as documented Cardiovascular: Cardiovascular: Reports no additional cardiovascular complaints Respiratory: Respiratory: Reports no additional respiratory complaints Gastrointestinal: Gastrointestinal: Reports no additional gastrointestinal complaints Genitourinary: Genitourinary: Reports no additional male genitourinary complaints [facility] Past Medical History Medical History (Updated 11/16/25 @ 10:02 by Ian Johns MD) Healthy adult male Surgical History Surgical History (Updated 11/16/25 @ 07:53 by Ian Johns MD) History of orthopedic surgery Right forearm Exam 2 Narrative: GENERAL: Uncomfortable-appearing, well-nourished, and in mild distress. HEAD: Normocephalic, atraumatic. ENT: Nares clear, no rhinorrhea or epistaxis. Mucous membranes moist. CHEST: Clear to auscultation. No respiratory distress. HEART: Regular rate and rhythm. Normal peripheral pulses. ABDOMEN: Soft, nontender, nondistended. EXTREMITIES: Normal range of motion. No edema. SKIN: Warm, dry, no rash. NEURO: Alert and oriented x3. PSYCH: Normal mood and affect. Course Course Emergency Course: Pain improved with morphine and Toradol. Has received 2 L IV fluid. Informed of lab and imaging results. He should be ill pass this stone home. He will be provided supportive care for home as well. No additional questions or concerns. Discharged with urine strainer. Vital Signs Vital signs: Vital Signs Temperature 98.4 F 11/16/25 06:12 Pulse Rate 84 11/16/25 06:12 Respiratory Rate 24 H 11/16/25 06:12 Blood Pressure 135/70 11/16/25 06:12 Pulse Oximetry 100 11/16/25 06:12 Oxygen Delivery Room Air 11/16/25 06:12 Temperature 98.4 F 11/16/25 06:12 Pulse Rate 82 11/16/25 09:26 Respiratory Rate 18 11/16/25 09:26 Blood Pressure 132/79 11/16/25 09:26 Pulse Oximetry 98 11/16/25 09:26 Oxygen Delivery Room Air 11/16/25 06:12 [facility] Differential Diagnosis Differential Diagnosis: Kidney stone, UTI, diverticulitis, testicular torsion, low back strain Lab Data MDM Lab Attestation statement: I personally reviewed the patient's lab results. 11/16/25 06:42 11/16/25 06:42 Labs: Lab Results 11/16/25 Range/Units 06:42 WBC 8.2 (4.5-10.0) K/mm3 RBC 5.05 (4.6-6.20) M/mm3 Hgb 13.9 L (14.0-18.0) g/dL Hct 42.4 (42.0-52.0) % MCV 84.0 (80-100) fl MCH 27.5 (26-34) pg MCHC 32.8 (32-36) g/dl RDW 12.3 (11.5-14.5) % Plt Count 288 (150-375) k/mm3 MPV 9.0 (7.4-10.4) fl Immature Gran % (Auto) 0.5 (0-0.5) % Neut % (Auto) 55.4 (45.5-73.1) % Lymph % (Auto) 33.4 (18.3-44.2) % [place] % (Auto) 9.2 H (2.6-8.5) % Eos % (Auto) 0.9 (0-4.4) % Baso % (Auto) 0.6 (0.2-1.2) % Lymph # (Auto) 2.75 (0.9-3.2) K/mm3 [place] # (Auto) 0.8 H (0.1-0.6) K/mm3 Eos # (Auto) 0.1 (0-0.3) K/mm3 Baso # (Auto) 0.1 (0.0-0.1) K/mm3 Abs Immat Gran (auto) 0.04 H (0.00-0.031) K/mm3 Absolute Neuts (auto) 4.6 (1.3-6.7) K/mm3 Absolute Nucleated RBC 0.000 (0.0-0.012) K/mm3 Nucleated RBC % 0.0 (0.0-0.2) % Sodium 140 (137-145) mmol/L Potassium 3.4 (3.4-5.0) mmol/L Chloride 104 (98-107) mmol/L Carbon Dioxide 26 (22-30) mmol/L Anion Gap 10 (4-12) mmol/L BUN 16 (9-20) mg/dL Creatinine 0.97 (0.7-1.3) mg/dL Estim Creat Clear Calc Not Reportable Estimated GFR > 60 (59 - ) Glucose 117 H (65-110) mg/dL Calcium 9.5 (8.4-10.2) mg/dL Total Bilirubin 0.5 (0.2-1.3) mg/dL AST 46 (17-59) U/L ALT 64 H (6-50) U/L Alkaline Phosphatase 75 (38-126) U/L Total Protein 8.0 (6.3-8.2) g/dL Albumin 4.5 (3.5-5.1) g/dL Urine Color Yellow (Yellow) Urine Appearance Clear (Clear) Urine pH 6.0 (5.0-9.0) Ur Specific [place] 1.018 (1.001-1.035) Urine Protein Negative (Negative) mg/dL Urine Glucose (UA) Negative (Negative) mg/dL Urine Ketones Negative (Negative) mg/dL Ur Blood (Man) 3+ H (Negative) Urine Nitrate Negative (Negative) Urine Bilirubin Negative (Negative) Urine Urobilinogen 0.2 (<2.0) mg/dL Leukocyte Esterase Rfl Negative (Negative) RIAN/UL Urine RBC >100 H (0-2) /hpf Urine WBC 0-5 (0-3) /hpf Ur Squamous Epith Cells None seen (Few) /hpf Urine Bacteria None seen /hpf Urine Casts 0-2 Imaging Data Attestation: I personally reviewed and interpreted this imaging study as follows: Radiologist's impression: ITS Impressions Abdomen/Pelvis CT 11/16/25 07:39 IMPRESSION: 1. Hydronephrosis left kidney due to 3 mm stone distal ureter. Discharge Plan Discharge Clinical Impression: Ureterolithiasis Patient Disposition: Home Condition: Stable Instructions: Kidney Stones (ED) Additional Instructions: Return to the emergency department if you develop severe abdominal pain, severe nausea and vomiting to the point where you are unable to keep down fluids, if you develop chest pain or difficulty breathing, blood in your stool, dizziness or fainting, or if you develop any other new or concerning symptoms as these could be signs of more serious medical illness. Try to stay well hydrated. Patient Language: Brazilian Prescriptions: New hydrocodone-acetaminophen 5-325 mg tablet 1 tablet PO Q6H PRN (Reason: pain) Qty: 10 0RF tamsulosin 0.4 mg capsule 0.4 mg PO DAILY Qty: 4 0RF ondansetron 4 mg tablet,disintegrating 4 mg PO Q6H PRN (Reason: nausea and vomiting) Qty: 10 0RF No Action omeprazole 20 mg capsule,delayed release(DR/EC) 20 mg PO DAILY Qty: 30 0RF ondansetron 4 mg tablet,disintegrating 4 mg PO Q8H PRN (Reason: nausea and vomiting) Qty: 15 0RF Follow-up/Referrals: Manoj Lewis MD [Physician, Urology] - 1 Week Aman,MIESHA Jarquin [Primary Care Provider, Unknown] Stand Alone Forms: Work/School Release IP
[2025-11-16] MEDS: KETOROLAC 30 MG/ML VIAL (*BKC) IV PUSH (08:21)
[2025-11-16] MEDS: TAMSULOSIN HCL 0.4 MG CAPSULE PO (08:21)
[2025-11-16 09:26] VITALS: BP 132/79; PULSE 82; RESP 18; O2SAT 98
[2025-11-16 10:04] VITALS: BP 115/68; PULSE 66; RESP 16; TEMP 36.8; O2SAT 99
== END 2025-11-16 10:12 | disposition home or self-care (01) ==
PROVIDERS: Student in an Organized Health Care Education/Training Program; Emergency Provider Emergency Medicine; PCP Nurse Practitioner Family
DX: N13.2 Hydronephrosis with renal and ureteral calculous obstruction (principal)
CPT/HCPCS: 36415; 74176; 80053; 81001; 85025; 96361; 96374; 96375; 99284; A9270; J1885; J2270; J2405; J7030